=== PATIENT | female | born 1960 | race Caucasian/White ===

== ENCOUNTER 2019-08-16 08:00 | Day surgery (SDC) | payer OTHER ==
[~2019-08-16 08:00] MED LIST: CARAFATE1 GM/10 ML PO; COZAAR100 MG PO; GAS RELIEF80 MG PO; NORVASC5 MG PO; POLY119PG PO; ULTRACET PO
== END 2019-08-16 16:40 | disposition home or self-care (01) ==
LOC: AMB-ENDOS 08:00
DX: K29.50 Unspecified chronic gastritis without bleeding (principal)